=== PATIENT | male | born 1990 | race Caucasian/White ===

== ENCOUNTER 2019-04-15 15:36 | Observation (INO) ==
[2019-04-15] MEDS ORDERED: Isovue-370 500 ML BOTTLE IVP ONE (17:02)
[2019-04-15] MEDS ORDERED: ceFAZolin 1,000 MG in Water for inj. (sterile) 10 ML IVP ONE (17:06)
[2019-04-15] MEDS ORDERED: 0.9 % Sodium Chloride 1,000 ML IVC ONE (17:06)
[2019-04-15 17:33] LABS: Hematocrit 46.1 % (37.5-50.1); Mean Corpuscular HGB Conc 32.5 g/dL (31.6-35.5); Mean Corpuscular Hemoglobin 30.2 pg (28.0-33.3); Mean Corpuscular Volume 92.8 fL (83.0-100.0); Mean Platelet Volume 11.1 fL (9.4-12.4); Platelet Count 190 K/mcL (140-400); Red Blood Count 4.97 M/mcL (4.19-5.50); Red Cell Distribution Width 12.2 % (11.5-14.5); White Blood Count 8.5 K/mcL (4.3-11.1)
[2019-04-15 17:46] LABS: BUN/Creatinine Ratio 14 (6-26); Blood Urea Nitrogen 16 mg/dL (6-20); Calcium 9.3 mg/dL (8.6-10.3); Carbon Dioxide 27 mEq/L (23-29); Chloride 102 mEq/L (98-107); Glucose 94 mg/dL (70-105); Osmolality,Calculated 289 (280-300); Potassium 3.8 mEq/L (3.5-5.1); Sodium 139 mEq/L (136-145); eGFR For African Americans > 60 (> 60); eGFR For Non-African Americans > 60 (> 60)
[2019-04-15] MEDS ORDERED: CefOXitin 1,000 MG VIAL ONE (20:16)
[2019-04-15] MEDS ORDERED: Ondansetron 4 MG/2 ML VIAL IVP ONE (20:39)
[2019-04-15] MEDS ORDERED: *HR* OxyCODONE Immed Rel 5 MG TABLET PO PRN (20:39)
[2019-04-15] MEDS ORDERED: *HR* HYDROmorphone (PF) 1 MG/ML SYRINGE IVP PRN (20:39)
[2019-04-15] MEDS ORDERED: *HR* Midazolam HCl 2 MG/2 ML VIAL ONE (20:43)
[2019-04-15] MEDS ORDERED: Lidocaine -MPF 2% 2 ML VIAL ONE (20:43)
[2019-04-15] MEDS ORDERED: *HR* Succinylcholine 200 MG/10 ML VIAL IVP ONE (20:43)
[2019-04-15] MEDS ORDERED: *HR* Propofol 200 MG/20 ML VIAL IVP ONE (20:43)
[2019-04-15] MEDS ORDERED: *HR* FentaNYL (PF) 100 MCG/2 ML VIAL ONE (20:43)
[2019-04-15] MEDS ORDERED: *HR* Rocuronium Bromide 50 MG/5 ML VIAL ONE (20:43)
[2019-04-15] MEDS ORDERED: Lidocaine HCL 4 ML Topical Solution (Laryng-O-Jet Kit Sterile Pak) TP ONE (20:55)
[2019-04-15] MEDS ORDERED: Ondansetron 4 MG/2 ML VIAL ONE (21:02)
[2019-04-15] MEDS ORDERED: Dexamethasone 4 MG/ML VIAL ONE (21:02)
[2019-04-15] MEDS ORDERED: Naloxone 0.4 MG/ML INJ ONE (21:53)
[2019-04-15] MEDS ORDERED: Ketorolac 30 MG/ML VIAL IVP STA (22:19)
[2019-04-15] MEDS ORDERED: Ringers Solution, Lactated 1,000 ML ONE (22:28)
[2019-04-15] MEDS ORDERED: *HR* OxyCODONE/APAP 5/325 TABLET PO PRN (23:41)
[2019-04-15] MEDS ORDERED: Ondansetron 4 MG/2 ML VIAL IVP PRN (23:41)
[2019-04-15] MEDS ORDERED: 0.9 % Sodium Chloride 1,000 ML IVC SCH (23:41)
[2019-04-16] MEDS ORDERED: ceFAZolin 2,000 MG in 0.9 % Sodium Chloride 100 ML IVPB SCH (04:00)
[2019-04-16 10:51] VITALS: BP 102/64
== END 2019-04-16 12:00 | disposition home or self-care (01) ==
LOC: EMEROOARM 15:36 → 3ANU 15:36 → EMEROOARM 20:22
PROVIDERS: ADMIT Surgery; ATTEND Surgery